=== PATIENT | male | born 1970 | race American Indian/Alaskan Native ===

== ENCOUNTER 2022-02-08 19:35 | Emergency (ER) | payer SELFPAY ==
[2022-02-08] MEDS ORDERED: SODIUM CHLORIDE 0.9% 1000 ML 1,000 ML IV ONE ×2 (19:48)
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
[2022-02-08 20:57] LABS: Basophils % (Auto) 0.2 % (0.0-1.8); Eosinophils % (Auto) 0.2 % (0.0-4.3); Hematocrit 42.1 % (35.5-45.6); Lymphocytes # (Auto) 0.6 K/mm3 (1.2-5.4); Lymphocytes % (Auto) 4.5 % (13.4-35.0); Mean Corpuscular HGB Conc 33 % (32-34); Mean Corpuscular Volume 97 fl (84-94); Monocytes # (Auto) 1.2 K/mm3 (0.0-0.8); Monocytes % (Auto) 9.6 % (0.0-7.3); Platelet Count 278 K/mm3 (140-440); Red Blood Count 4.35 M/mm3 (3.65-5.03); Red Cell Distribution Width 12.5 % (13.2-15.2)
[2022-02-08 21:16] LABS: Creatine Kinase MB 1.2 ng/mL (0.0-4.0)
[2022-02-08 21:17] LABS: BUN/Creatinine Ratio 6; Blood Urea Nitrogen 8 mg/dL (9-20); Calcium 9.1 mg/dL (8.4-10.2); Hemolysis Index 10
[2022-02-08 22:47] LABS: Amphetamine Screen,Urine PRESUMPTIVE POSITIVE; Benzodiazepines Screen,Urine PRESUMPTIVE NEGATIVE; Cannabinoid Screen,Urine PRESUMPTIVE POSITIVE; Cocaine Screen,Urine PRESUMPTIVE POSITIVE; Methadone Screen,Urine PRESUMPTIVE NEGATIVE; Opiate Screen,Urine PRESUMPTIVE NEGATIVE
[2022-02-09 03:58] VITALS: BP 106/66
--- NOTE | 2022-02-09 09:01 | Electrocardiograph Report ---
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
== END 2022-02-09 02:55 | disposition home or self-care (01) ==
LOC: ED 19:35
DX: F14.10 Cocaine abuse, uncomplicated (principal); F15.10 Other stimulant abuse, uncomplicated
CPT/HCPCS: 36415; 80048; 80307; 80320; 82550; 82553; 84484; 85025; 93005; 96360; 99284; G0480